=== PATIENT | female | born 1980 | race African-American/Black ===

== ENCOUNTER 2020-04-03 17:00 | Emergency (ER) | payer OTHER ==
[2020-04-03 17:14] VITALS: BP 121/71; PULSE 85; BMI 37.5
[2020-04-03] MEDS ORDERED: ONDANSETRON 4 MG/2 ML VIAL IVPUSH ONE (17:53)
[2020-04-03] MEDS ORDERED: SODIUM CHLORIDE 0.9% 500 ML INFUS.BAG IV ONE (17:53)
[2020-04-03] MEDS ORDERED: ONDANSETRON 4 MG/2 ML VIAL ONE (18:27)
[2020-04-03 19:13] LABS: BASO % 0.6 % (0-2.0); EOS % 3.7 % (0-4.5); HEMATOCRIT 39.8 % (32.4-45.2); HEMOGLOBIN 13.2 GM/dL (10.7-15.3); MCH 28.6 pg (25.7-33.7); MCHC 33.1 g/dl (32.0-36.0); MEAN CELL VOLUME 86.5 fl (80-96); MONO % 8.8 % (3.8-10.2); NEUT % 60.9 % (42.8-82.8); PLATELET COUNT 322 K/MM3 (134-434); RDW 13.5 % (11.6-15.6); WHITE BLOOD COUNT 5.1 K/mm3 (4.0-10.0)
[2020-04-03 19:31] LABS: POTASSIUM 3.9 mmol/L (3.5-5.1)
[2020-04-03 19:33] LABS: CALCIUM 8.9 mg/dL (8.5-10.1)
[2020-04-03 19:34] LABS: ALBUMIN 3.3 g/dl (3.4-5.0); BLOOD UREA NITROGEN 5.8 mg/dL (7-18); MAGNESIUM 2.3 mg/dL (1.8-2.4)
[2020-04-03 19:37] LABS: CREATININE 0.9 mg/dL (0.55-1.3); PHOSPHOROUS 3.8 mg/dL (2.5-4.9)
[2020-04-03 19:38] LABS: BILIRUBIN,TOTAL 0.4 mg/dL (0.2-1); TOT PROT 7.1 g/dl (6.4-8.2)
== END 2020-04-03 20:46 | disposition home or self-care (01) ==
LOC: JER 17:00
PROC: 3E033GC Introduction of Other Therapeutic Substance into Peripheral Vein, Percutaneous Approach (ICD-10-PCS; principal; 2020-04-03)
DX: R11.2 Nausea with vomiting, unspecified (principal)
CPT/HCPCS: 36415; 80053; 83735; 84100; 85025; 99284-25

== ENCOUNTER 2020-05-28 23:35 | Inpatient (IN) | payer OTHER ==
[2020-05-29 04:30] VITALS: BMI 37.5
[2020-05-29] MEDS: MISOPROSTOL 25 MCG TABLET (COMPOUNDED BY PHARMACY) PO SCH (05:00)
[2020-05-29 06:20] LABS: BASO % 0.5 % (0-2.0); EOS % 1.9 % (0-4.5); HEMATOCRIT 40.7 % (32.4-45.2); HEMOGLOBIN 13.7 GM/dL (10.7-15.3); LYMPH % 25.9 % (8-40); MCHC 33.7 g/dl (32.0-36.0); MEAN CELL VOLUME 85.9 fl (80-96); MEAN PLT VOLUME 7.5 fl (7.5-11.1); MONO % 7.3 % (3.8-10.2); NEUT % 64.4 % (42.8-82.8); PLATELET COUNT 329 K/MM3 (134-434); RBC 4.74 M/mm3 (3.60-5.2); RDW 13.5 % (11.6-15.6); WHITE BLOOD COUNT 5.8 K/mm3 (4.0-10.0)
[2020-05-29 06:26] LABS: INR 1.02 (0.83-1.09); PROTHROMBIN TIME (PATIENT) 12.3 SEC (9.7-13.0)
[2020-05-29 06:29] LABS: ACTIVATED PTT 30.5 SECONDS (25.2-36.5)
[2020-05-29 06:45] LABS: CALCIUM 9.2 mg/dL (8.5-10.1); POTASSIUM 3.7 mmol/L (3.5-5.1)
[2020-05-29 06:47] LABS: BLOOD UREA NITROGEN 4.6 mg/dL (7-18)
[2020-05-29 06:49] LABS: CREATININE 0.7 mg/dL (0.55-1.3)
[2020-05-29] MEDS: DEXTROSE 5%-LACTATED RINGERS 1,000 ML IV SCH ×2 (07:30→15:00)
[2020-05-29 07:42] LABS: HIV INTERPRETATION NEGATIVE (NEGATIVE)
[2020-05-29] MEDS ORDERED: MISOPROSTOL 200 MCG TABLET PO SCH (08:00)
[2020-05-29] MEDS ORDERED: MISOPROSTOL 25 MCG TABLET (COMPOUNDED BY PHARMACY) PV SCH (09:00)
[2020-05-29] MEDS ORDERED: MISOPROSTOL 200 MCG TABLET ONE ×3 (09:37→18:07)
[2020-05-29] MEDS: MISOPROSTOL 100 MCG TABLET PO SCH ×3 (09:40→18:11)
[2020-05-29 09:50] LABS: POC NITRAZINE POS
[2020-05-29] MEDS ORDERED: BUTORPHANOL TARTRATE 2 MG/ML VIAL IVPB PRN (09:54)
[2020-05-29] MEDS ORDERED: PROMETHAZINE HCL 25 MG/1 ML VIAL IVPB PRN (09:55)
[2020-05-29] MEDS ORDERED: ACETAMINOPHEN 325 MG TABLET (FP) PO PRN (09:56)
[2020-05-29] MEDS ORDERED: IBUPROFEN 600 MG TABLET (FP) PO ONE ×2 (10:06→15:29)
[2020-05-29] MEDS: IBUPROFEN 600 MG TABLET (FP) PO PRN ×2 (10:10→15:35)
[2020-05-29 10:47] LABS: URINE BARBITURATES NEGATIVE ng/ml (CUTOFF=200)
[2020-05-29 10:49] LABS: COCAINE, UR NEGATIVE ng/ml (CUTOFF=300); METHADONE, UR NEGATIVE ng/ml (CUTOFF=300); OPIATES, URI NEGATIVE ng/ml (CUTOFF=300); PHENCYCLIDINE,URINE NEGATIVE ng/ml (CUTOFF=25); URINE AMPHETAMINES NEGATIVE ng/ml (CUTOFF=500); URINE BENZODIAZEPINES NEGATIVE ng/ml (CUTOFF=200)
[2020-05-29] MEDS ORDERED: PROMETHAZINE HCL 25 MG/1 ML VIAL ONE (19:06)
[2020-05-29] MEDS ORDERED: BUTORPHANOL TARTRATE 2 MG/ML VIAL ONE (19:06)
[2020-05-29] MEDS ORDERED: OXYTOCIN 20 UNITS in 0.9% NS 20 UNIT/1,000 ML INFUS.BAG IV ONE ×2 (19:49→22:07)
[2020-05-29] MEDS: D5W-LR W/ 20 UNITS OXYTOCIN 20 UNIT/1,000 ML INFUS.BAG IV SCH ×2 (19:50→22:10)
[2020-05-29] MEDS ORDERED: BISACODYL 10 MG SUPP.RECT RC PRN (20:06)
[2020-05-29] MEDS ORDERED: WITCH HAZEL 50% (TUCKS) 40 PAD/JAR PAD TP PRN (20:06)
[2020-05-29] MEDS ORDERED: METHYLERGONOVINE MALEATE 0.2 MG/1 ML AMP IM PRN (20:06)
[2020-05-29] MEDS ORDERED: BENZOCAINE 20% 57 GM BOTTLE TP PRN (20:06)
[2020-05-29] MEDS ORDERED: BENZOCAINE 28 GM HEMORRHOIDAL OINTMENT TP PRN (20:06)
[2020-05-29] MEDS: FERROUS SO4 325 MG TABLET (FP) PO SCH (22:00)
[2020-05-30] MEDS: DEXTROSE 5%-LACTATED RINGERS 1,000 ML IV SCH
[2020-05-30] MEDS: MISOPROSTOL 100 MCG TABLET PO SCH (01:32)
[2020-05-30] MEDS: ACETAMINOPHEN 325 MG TABLET (FP) PO PRN ×2 (02:16→09:13)
[2020-05-30] MEDS: IBUPROFEN 600 MG TABLET (FP) PO PRN ×2 (02:21→09:12)
[2020-05-30] MEDS: MISOPROSTOL 25 MCG TABLET (COMPOUNDED BY PHARMACY) PO SCH (02:23)
[2020-05-30] MEDS ORDERED: PRENATAL VITAMINS W/ FOLIC ACID TABLET (FP) PO SCH (10:00)
[2020-05-30] MEDS: FERROUS SO4 325 MG TABLET (FP) PO SCH (11:33)
[2020-05-30 12:25] LABS: BASO % 0.4 % (0-2.0); HEMATOCRIT 37.9 % (32.4-45.2); HEMOGLOBIN 12.7 GM/dL (10.7-15.3); LYMPH % 19.9 % (8-40); MCH 28.7 pg (25.7-33.7); MCHC 33.5 g/dl (32.0-36.0); MEAN CELL VOLUME 85.6 fl (80-96); MEAN PLT VOLUME 7.8 fl (7.5-11.1); MONO % 10.9 % (3.8-10.2); NEUT % 65.8 % (42.8-82.8); PLATELET COUNT 288 K/MM3 (134-434); RBC 4.42 M/mm3 (3.60-5.2); RDW 13.5 % (11.6-15.6); WHITE BLOOD COUNT 6.4 K/mm3 (4.0-10.0)
[2020-05-30 14:37] VITALS: BP 104/62; PULSE 78; TEMP 98
[2020-05-30 18:08] LABS: CMV IgM < 30.0 AU/mL (0.0-29.9); RUBELLA ANTIBODY,IGM <20.0 AU/mL (0.0-19.9)
[2020-05-30] MEDS ORDERED: SENNOSIDES/DOCUSATE COMBO (SENNA PLUS) TABLET (UD) PO PRN (22:00)
== END 2020-05-30 19:35 | disposition home or self-care (01) | DRG 560 ==
LOC: JDEL 23:35 → JLDR 05-29 02:00 → J3W 05-29 22:45
PROVIDERS: ADMIT Family Medicine; ATTEND Family Medicine
PROC: 10E0XZZ Delivery of Products of Conception, External Approach (ICD-10-PCS; principal; 2020-05-29)
PROC: 3E0P7VZ Introduction of Hormone into Female Reproductive, Via Natural or Artificial Opening (ICD-10-PCS; 2020-05-29)
PROC: 3E0D7GC Introduction of Other Therapeutic Substance into Mouth and Pharynx, Via Natural or Artificial Opening (ICD-10-PCS; 2020-05-29)
DX: O36.4XX0 Maternal care for intrauterine death, not applicable or unspecified (principal); Z3A.20 20 weeks gestation of pregnancy; Z37.1 Single stillbirth
CPT/HCPCS: 36415; 59409; 76815-TC; 80048; 80307; 83986-QW; 85025; 85610; 85730; 86593; 86645; 86694; 86762; 86778; 86780; 86850; 86900; 86901; 87389; 88307-TC; C9803; U0003